=== PATIENT | female | born 1955 | race Caucasian/White ===

== ENCOUNTER 2020-11-05 10:27 | Emergency (ER) | payer MEDICARE, OTHER, SELFPAY ==
--- NOTE | ~2020-11-05 | CT_ITS ---
EXAMINATION: CT abdomen pelvis w con INDICATION: Pelvic pain TECHNIQUE: Computed tomographic images of the abdomen and pelvis were obtained after the administrati on of 100 cc of Omnipaque 350 intravenous contrast. The dose-length product (DLP) was 583.47 mGy-cm. Automated exposure control and iterative reconstruction technique were employed. COMPARISON: 12/24/2015 FINDINGS: The lung bases are clear. The heart size is normal. There is a small sliding hiatal hernia with possible mild eccentric wall thickening of the distal esophagus. The liver, spleen, pancreas, ga llbladder, and adrenal glands are normal. The kidneys are unremarkable. The appendix is normal. No pa thologically enlarged abdominal or pelvic lymph nodes are identified. There is no free intraperitonea l gas or evidence of bowel obstruction. An IUD is present in the uterus in expected position. Colonic diverticulosis is present without evidence of diverticulitis. There is sclerosis of the pubic symphy sis on the right, possibly reflecting Paget's disease. There is moderate lumbar spondylosis at L5-S1. A tiny fat-containing umbilical hernia is noted. IMPRESSION: 1. No CT correlate for the patient's symptoms. 2. Small sliding hiatal hernia with possible wall thickening of the distal esophagus. Consider noneme rgent direct visualization. Reviewed, dictated and finalized at location A. ORT REPRESENTATIVE IMPRESSION: 1. No CT correlate for the patient's symptoms. 2. Small sliding hiatal hernia with possible wall thickening of the distal esop hagus. Consider nonemergent direct visualization.
[2020-11-05 10:35] VITALS: BP 153/95; PULSE 84; RESP 17; TEMP 37.2; O2SAT 96
--- NOTE | 2020-11-05 10:54 | ED.ABDPAIN ---
HPI - Abdominal Pain General Chief Complaint: Abdominal Pain Stated Complaint: pelvic pain Time Seen by Provider: 11/05/20 10:48 Source: patient Mode of arrival: ambulatory Limitations: no limitations History of Present Illness HPI narrative: 65-year-old woman comes in today complaining of waxing and waning pelvic pain that is essentially midline is been present for last 2 days. She states her pain got worse after doing physical therapy and running some errands. She states that she has had no hematuria, dysuria, vomiting, fever, diarrhea, vaginal discharge, or trauma. MD elicited complaint: abdominal pain Onset (ago): day(s) (2) Pain Consistency: constant and colicky Location: pelvis Severity: moderate Quality: sharp Radiation: none Migration to: no migration Exacerbating factors: nothing Relieving factors: nothing Associated symptoms: denies other symptoms Treatments prior to arrival: prescription analgesics Related Data Home Medications Medication Instructions Recorded Confirmed atorvastatin 20 mg PO DAILY 11/05/20 11/05/20 bupropion HCl 150 mg PO DAILY 11/05/20 11/05/20 carvedilol 12.5 mg PO BID 11/05/20 11/05/20 desvenlafaxine succinate 100 mg PO DAILY 11/05/20 11/05/20 fluticasone propionate 1 spray INTRANASAL DAILY 11/05/20 11/05/20 gabapentin 600 mg PO BID 11/05/20 11/05/20 ipratropium bromide 1 spray INTRANASAL DAILY 11/05/20 11/05/20 metformin 500 mg PO DAILY 11/05/20 11/05/20 oxycodone-acetaminophen 1 tablet PO TID PRN 11/05/20 11/05/20 spironolacton-hydrochlorothiaz 1 tablet PO DAILY 11/05/20 11/05/20 tizanidine 2 mg PO DAILY 11/05/20 11/05/20 Allergies Allergy/AdvReac Type Severity Reaction Status Date / Time No Known Allergies Allergy Verified 11/05/20 10:48 Review of Systems Constitutional: Constitutional: Denies chills, Denies fever(s) and Denies weakness ENT: Denies dysphagia, Denies nasal congestion and Denies sore throat Cardiovascular: Cardiovascular: Denies chest pain and Denies radiating jaw, neck or arm pain Respiratory: Respiratory: Denies cough and Denies dyspnea Gastrointestinal: Gastrointestinal: Reports abdominal pain, Denies diarrhea, Denies nausea and Denies vomiting Genitourinary: Genitourinary: Denies hematuria, Reports nocturia and Denies dysuria Musculoskeletal: Musculoskeletal: Reports back pain, Denies arthralgias and Denies joint swelling Integumentary/Breasts: Skin/Breast: Denies pruritus, Denies erythema and Denies rash Neurologic: Denies vertigo, Denies dizziness and Denies syncope Hematologic/Lymphatic: Hematologic/Lymphatic: Denies easy bleeding and Denies easy bruising Allergic/Immunologic: Allergic/Immunologic: Denies lip swelling and Denies throat swelling PMFSH Past Medical History Medical History (Updated 11/05/20 @ 13:19 by Antonio Granados MD) Dyslipidemia (Unknown) Hypertension Type 2 diabetes mellitus Surgical History Surgical History (Updated 11/05/20 @ 10:58 by Antonio Granados MD) H/O inguinal hernia repair History of tubal ligation Social History Social History (Updated 11/05/20 @ 10:59 by Antonio Granados MD) Smoking status: Former smoker Alcohol intake: never Substance use: never Living arrangements: with family Exam Const: General: healthy appearing and alert Nutritional Appearance: obese Orientation/consciousness: patient oriented x3 Other: [id number] acute distress. HENMT: Head: normal to inspection Ears: external ears normal and TM's normal bilaterally General nose exam: Normal nares present Face and sinus: normal facial exam Mouth: Yes moist mucous membranes Throat: posterior oropharynx normal Eyes: Conjunctivae: conjunctivae normal Pupils: Equal, round and reactive pupils present EOM: EOMs intact bilaterally Resp: Effort & Inspection: normal respiratory effort and not labored Auscultation: clear to auscultation bilaterally, no rales, no rhonchi and no wheezes Cardio: Rate: regular rate
[2020-11-05 11:04] LABS: Add Urine Microscopic? YES; Appearance Urine Clear (Clear); Bilirubin Urine Negative (Negative); Blood Urine 2+ (Negative); Color Urine Yellow (Yellow); Glucose Urine UA 1+ (Negative); Ketones Urine Negative (Negative); Leukocyte Esterase Ur Negative LEU/UL (Negative); Nitrate Urine Negative (Negative); Protein Urine Negative (Negative); Specific Grav Ur >= 1.030 (1.010-1.020); Urobilinogen Urine 0.2 mg/dL (0.2-1.0)
[2020-11-05 11:09] LABS: Bacteria Urine 2+ /hpf; Squamous Epithelial Cell Urine Few /hpf (Few); WBC Urine 0-3 /hpf (0-3)
[2020-11-05 11:12] LABS: Basophils Absolute Auto 0.07 K/mm3 (0.00-0.10); Basophils Percent Auto 0.8 % (0.0-1.0); Eosinophils Absolute Auto 0.28 K/mm3 (0.02-0.50); Eosinophils Percent Auto 3.1 % (1.0-6.0); Hematocrit 44.6 % (35.0-42.0); Hemoglobin 15.3 g/dL (11.7-13.8); Immature Granulocyte Absolute 0.03 K/mm3 (0.00-0.00); Immature Granulocyte Percent A 0.3 % (0.0-0.0); Lymphocytes Absolute Auto 2.16 K/mm3 (1.10-4.50); Lymphocytes Percent Auto 23.9 % (18.0-42.0); Mean Corpuscular HGB Conc 34.3 g/dL (32.0-36.0); Mean Corpuscular Volume 90.3 fL (78.0-102.0); Mean Platelet Volume 10.2 fl (9.2-11.8); Monocytes Absolute Auto 0.84 K/mm3 (0.10-0.90); Monocytes Percent Auto 9.3 % (2.0-11.0); Neutrophils Absolute Auto 5.7 K/mm3 (1.7-7.2); Neutrophils Percent Auto 62.6 % (50.0-70.0); Platelet Count Result 260 K/mm3 (150-420); Red Blood Count 4.94 M/mm3 (4.20-5.40)
[2020-11-05 11:26] LABS: Alanine Aminotransferase 22 U/L (14-59); Albumin Level 3.8 g/dL (3.4-5.0); Alkaline Phosphatase 67 U/L (46-116); Anion Gap 8 mmol/L (8-16); Aspartate Amino Transferase 17 U/L (15-37); Bilirubin,Total 0.4 mg/dL (0.00-1.00); Blood Urea Nitrogen 22 mg/dL (7-18); Calcium 8.8 mg/dL (8.5-10.1); Carbon Dioxide 28 mmol/L (21-32); Chloride 101 mmol/L (98-108); Estimated Glomerular Filt Rate > 60; Glucose 242 mg/dL (70-99); Lipase 168 U/L (73-393); Osmolality Calculated 295 mOsm/kg (285-295); Potassium 3.5 mmol/L (3.5-5.1); Sodium 137 mmol/L (136-145); Total Protein 6.9 g/dL (6.4-8.2)
[2020-11-05 11:29] LABS: Lactic Acid Reflex 1.9 mmol/L (0.4-2.0)
[2020-11-05 13:29] VITALS: BP 142/94
== END 2020-11-05 13:30 | disposition home or self-care (01) ==
PROVIDERS: Emergency Provider Emergency Medicine; PCP Internal Medicine Geriatric Medicine
DX: R10.2 Pelvic and perineal pain (principal); E78.5 Hyperlipidemia, unspecified; I10 Essential (primary) hypertension; E11.9 Type 2 diabetes mellitus without complications; Z87.891 Personal history of nicotine dependence
CPT/HCPCS: 36415; 74177; 80053; 81001; 83605; 83690; 85025; 99282; 99284; Q9967

== ENCOUNTER 2020-11-11 10:51 | Outpatient (CLI) | payer MEDICARE, OTHER, SELFPAY | END 2020-11-11 10:52 | disposition home or self-care (01) | LOC: CHSIMG 10:52 | PROVIDERS: PCP Internal Medicine Geriatric Medicine; Visit Provider Internal Medicine Geriatric Medicine | DX: Z53.8 Procedure and treatment not carried out for other reasons (principal) | CPT/HCPCS: 99199 ==

== ENCOUNTER 2020-12-30 08:09 | Outpatient (CLI) | payer MEDICARE, OTHER, SELFPAY ==
--- NOTE | ~2020-12-30 | MM_ITS ---
EXAMINATION: MM screening butch BI w khang HISTORY: Screening TECHNIQUE: Craniocaudal and mediolateral oblique 3-D tomosynthesis images were obtained and synthetic 2-D images were generated. CAD analysis was submitted and interpreted. COMPARISON: Comparison to multiple prior studies sequentially, with oldest reviewed study dated 11/2013. BREAST PARENCHYMAL COMPOSITION: Breast composed of scattered areas of fibroglandular density FINDINGS: There is no evidence of suspicious mass, calcification, or architectural distortion to sugg est malignancy in either breast. There has been no suspicious interval change. IMPRESSION: 1. No mammographic evidence of malignancy. 2. Recommend routine screening mammography in one year. BI-RADS Category 1: Negative Reviewed, dictated and finalized at location A.
== END 2020-12-30 08:10 | disposition home or self-care (01) ==
LOC: CHSIMG 08:11
PROVIDERS: PCP Internal Medicine Geriatric Medicine; Visit Provider Internal Medicine Geriatric Medicine
DX: Z12.31 Encounter for screening mammogram for malignant neoplasm of breast (principal)
CPT/HCPCS: 77063; 77067

== ENCOUNTER 2022-08-14 10:03 | Outpatient (CLI) | payer MEDICARE, SELFPAY | END 2022-08-14 10:04 | disposition home or self-care (01) | LOC: CHSLAB 10:10 | PROVIDERS: PCP Internal Medicine Geriatric Medicine; Visit Provider Specialist | DX: L57.0 Actinic keratosis (principal) | CPT/HCPCS: 88305 ==

== ENCOUNTER 2025-08-03 13:22 | Outpatient (CLI) | payer MEDICARE, SELFPAY ==
--- NOTE | ~2025-08-03 | XR_ITS ---
EXAMINATION: DATE: INDICATION: Lumbosacral spine complete including AP standing view, lateral flexion-extension views: TECHNIQUE: Standing AP and lateral views including flexion and extension lateral views: COMPARISON: MRI dated 08/03/2025. FINDINGS: There are 5 lumbar segments noted. Severe degenerative disc changes with facet arthropathy is noted. Minimal first degree Anterolisthesis of L3 on L4 is noted with stable listhesis on lateral flexion view. Moderate degenerative disc disease at L4-5 level with facet arthropathy. Significant loss of disc space with degenerative changes at L5-S1 level. No significant listhesis is seen. IMPRESSION: 1. Severe degenerative disc changes at L3-4 level with facet arthropathy. Minimal, first-degree stable degenerative anterolisthesis. 2. Significant degenerative disc changes at L5-S1 level. Moderate degenerative changes at L4-5 level. Reviewed, dictated and finalized at location T. RENCE DATA EXPERT IMPRESSION: 1. Severe degenerative disc changes at L3-4 level with facet arthropathy. Minim al, first-degree stable degenerative anterolisthesis. 2. Significant degenerative disc changes at L5-S1 level. Moderate degenerative changes at L4-5 level.
--- NOTE | ~2025-08-03 | MR_ITS ---
EXAMINATION: MR lumbar spine wo con DATE: 08/03/2025 14:00 INDICATION: Lumbar spinal stenosis without neurogenic claudication TECHNIQUE: Magnetic resonance imaging (MRI) of the lumbar spine was performed without intravenous contrast. Sequences included sagittal T2-weighted FSE, sagittal T2-weighted FS FSE, sagittal T1-weighted FSE, and axial T2-weighted FSE. COMPARISON: MRI dated 06/25/2018 FINDINGS: 3 mm anterolisthesis L3 on L4. 1-2 mm anterolisthesis L2 on L3. Vertebral body heights are normal. Normal marrow signal. Moderate disc height loss at L3-L4, L4-L5 and L5-S1 and mild disc height loss at T12-L1 and L2-L3. The conus medullaris terminates at L1. There is normal signal in the caudal spinal cord. Paravertebral soft tissues are unremarkable. The following disc levels are specifically discussed: T12-L1: Disc is bulging. There is hypertrophy of the ligamentum flavum. There is severe bilateral facet joint osteoarthritis. There is minimal bilateral neural foraminal stenosis. There is mild central canal stenosis. L1-L2: Disc is mildly bulging. There is mild left and moderate right facet joint osteoarthritis. There is minimal bilateral neural foraminal stenosis. There is mild central canal stenosis. L2-L3: Disc is bulging. There is hypertrophy of the ligamentum flavum. There is severe bilateral facet joint osteoarthritis. There is mild bilateral neural foraminal stenosis. There is mild central canal stenosis. L3-L4: Disc is bulging with superimposed annular fissure and right paracentral and left foraminal zone disc protrusions. There is hypertrophy of the ligamentum flavum. There is severe bilateral facet joint osteoarthritis. There is mild to moderate bilateral neural foraminal stenosis. There is moderate central canal stenosis. There is also narrowing of the lateral recesses, right greater than left. L4-L5: Disc is bulging with superimposed right subarticular zone annular fissure and disc protrusion. There is hypertrophy of the ligamentum flavum. There is mild left and moderate right facet joint osteoarthritis. There is moderate bilateral neural foraminal stenosis. There is mild central canal stenosis along with narrowing of the lateral recesses, right greater than left. L5-S1: Disc is mildly bulging with annular fissure and left foraminal zone disc extrusion. There is moderate bilateral facet joint osteoarthritis. There is mild right and moderate left neural foraminal stenosis. There is minimal central canal stenosis. IMPRESSION: 1. Moderate lower lumbar predominant spondylosis. Reviewed, dictated and finalized at location A. ICAL TRAINING COORDINATOR
== END 2025-08-03 13:23 | disposition home or self-care (01) ==
LOC: GOSHIMG 13:22
PROVIDERS: PCP Internal Medicine Geriatric Medicine; Visit Provider Nurse Practitioner Adult Health
DX: M48.061 Spinal stenosis, lumbar region without neurogenic claudication (principal)
CPT/HCPCS: 72110; 72148